=== PATIENT | female | born 1970 | race African-American/Black ===

== ENCOUNTER 2020-10-24 13:58 | Emergency (ER) | payer OTHER ==
[~2020-10-24] VITALS: Ht 162.6 cm; Wt 88.5 kg
[2020-10-24 14:07] VITALS: Ht 162.6 cm; Wt 88.5 kg
[2020-10-24 15:16] LABS: BASOPHIL % 0.8 % (0.2-1.3); PLATELET COUNT 284 x10^3mcL (179-408)
[2020-10-24 15:17] LABS: RED CELL DISTRIBUTION WIDTH 14.8 % (12.3-17.7)
[2020-10-24 15:22] LABS: CALCIUM 9.3 mg/dL (8.5-10.1); CARBON DIOXIDE 29.9 mmol/L (21-32); CHLORIDE SERUM 98 mmol/L (98-107); CREATININE SERUM 0.8 mg/dL (0.6-1.0); GFR1 > 60 mL/min; GLUCOSE SERUM 102 mg/dL (74-106); POTASSIUM SERUM 3.7 mmol/L (3.5-5.1); SODIUM SERUM 135 mmol/L (136-145)
[2020-10-24 15:30] LABS: ALBUMIN 4.1 g/dL (3.4-5.0); ALKALINE PHOSPHATASE 58 U/L (46-116); ALT/SGPT 29 U/L (14-59); AST/SGOT 21 U/L (15-37); BILIRUBIN TOTAL 0.22 mg/dL (0.20-1.00); TOTAL PROTEIN, SERUM 7.6 g/dL (6.4-8.2)
[2020-10-24 15:32] LABS: CHOLESTEROL 241 mg/dL (<200); HDL CHOLESTEROL 83 mg/dL (40-60)
[2020-10-24 18:15] VITALS: BP 140/86
== END 2020-10-24 18:16 | disposition home or self-care (01) ==
LOC: ED 13:58
PROVIDERS: Emergency Medicine
DX: R55 Syncope and collapse (principal); T73.0XXA Starvation, initial encounter; J45.909 Unspecified asthma, uncomplicated; X58.XXXA Exposure to other specified factors, initial encounter